=== PATIENT | female | born 1945 | race Caucasian/White ===

== ENCOUNTER → 2016-07-04 | Outpatient (CLI) | payer MEDICARE, BC | LOC: RAD 11:49 | PROVIDERS: ATTEND Family Medicine | DX: R05 Cough (principal); R63.4 Abnormal weight loss; J44.9 Chronic obstructive pulmonary disease, unspecified | CPT/HCPCS: 71020 ==

== ENCOUNTER → 2016-07-04 | Outpatient (REF) | payer MEDICARE, BC ==
[~2016-07-04] MED LIST: ALEN70TA2 PO; ASP81CT PO; CALC500T55 PO; CART1TAB4 PO; ENZY1CAP PO; FLAX100011 PO; LACT1CAP69 PO; LEVO500T80 PO; METR500T17 PO; MULT-141 PO; OMG1KC PO; ONDN4T PO; PENT100C3 PO; VITA400C58 PO
[2016-07-04 12:23] LABS: BASOPHILS % (AUTO) 0 % (0-2); EOSINOPHILS # (AUTO) 0.1 10^3uL; EOSINOPHILS % (AUTO) 0 % (0-4); LYMPHOCYTES # (AUTO) 2.1 X10^3; MEAN CORPUSCULAR HEMOGLOBIN 30.5 PG (26.0-34.0); MEAN CORPUSCULAR HGB CONC 32.6 g/dL (31.0-37.0); MEAN CORPUSCULAR VOLUME 94 FL (80-100); MEAN PLATELET VOLUME 9.7 FL (6.0-9.5); MONOCYTES # (AUTO) 1.1 X10^3; MONOCYTES % (AUTO) 6 % (3-11); NEUTROPHILS # (AUTO) 14.3 X10^3; NEUTROPHILS % (AUTO) 81 % (51-67); PLATELET COUNT 372 10^3uL (150-450); WHITE BLOOD COUNT 17.57 10^3uL (4.0-11.0)
[2016-07-04 12:29] LABS: ALBUMIN 4.3 g/dL (3.4-5.0); ANION GAP 18.5 MEQ/L (3-15); CALCULATED IONIZED CALCIUM 4.1 mg/dL (3.8-4.6); TOTAL PROTEIN 7.4 g/dL (6.4-8.5)
[2016-07-04 13:00] LABS: ERYTHROCYTE SEDIMENTATION RT* 54 mm/hr (0-23)
== END ==
LOC: LAB 12:03
PROVIDERS: ATTEND Family Medicine
DX: C50.112 Malignant neoplasm of central portion of left female breast (principal); R63.4 Abnormal weight loss; R05 Cough; R61 Generalized hyperhidrosis
CPT/HCPCS: 80053; 84443; 85025; 85652; 86038; 86140; 86301

== ENCOUNTER → 2016-07-19 | Outpatient (REF) | payer MEDICARE, BC ==
[2016-07-19 16:43] LABS: BASOPHILS % (AUTO) 1 % (0-2); EOSINOPHILS # (AUTO) 0.1 10^3uL; EOSINOPHILS % (AUTO) 2 % (0-4); LYMPHOCYTES # (AUTO) 3.4 X10^3; MEAN CORPUSCULAR HEMOGLOBIN 30.6 PG (26.0-34.0); MEAN CORPUSCULAR VOLUME 96 FL (80-100); MEAN PLATELET VOLUME 9.6 FL (6.0-9.5); MONOCYTES # (AUTO) 0.4 X10^3; MONOCYTES % (AUTO) 6 % (3-11); NEUTROPHILS # (AUTO) 2.9 X10^3; NEUTROPHILS % (AUTO) 42 % (51-67); PLATELET COUNT 327 10^3uL (150-450); WHITE BLOOD COUNT 6.78 10^3uL (4.0-11.0)
[2016-07-19 17:52] LABS: ERYTHROCYTE SEDIMENTATION RT* 11 mm/hr (0-23)
== END ==
LOC: LAB 15:53
PROVIDERS: ATTEND Family Medicine
DX: D72.823 Leukemoid reaction (principal); J15.8 Pneumonia due to other specified bacteria
CPT/HCPCS: 85025; 85652; 86140